=== PATIENT | female | born 1980 | race Caucasian/White ===

== ENCOUNTER 2017-12-11 15:00 | Observation (INO) | payer OTHER ==
[~2017-12-11] VITALS: Ht 170.2 cm; Wt 79.8 kg
[2017-12-11 15:43] VITALS: BP 106/66
[2017-12-11 16:47] LABS: BASOPHILS % (AUTO) 0.4 % (0.0-2.0); EOSINOPHILS % (AUTO) 0.2 % (1.0-6.0); HEMATOCRIT 31.3 % (36-46); LYMPHOCYTES # (AUTO) 1.7 K/uL (1.0-4.8); LYMPHOCYTES % (AUTO) 16.7 % (22.0-44.0); MEAN CORPUSCULAR HEMOGLOBIN 32.1 pg (26.0-34.0); MEAN CORPUSCULAR HGB CONC 35.1 G/dL (31.0-37.0); MEAN CORPUSCULAR VOLUME 92 fL (80-100); MONOCYTES # (AUTO) 0.5 K/uL (0.1-1.0); MONOCYTES % (AUTO) 5.5 % (2.0-9.0); NEUTROPHILS # (AUTO) 7.7 K/uL (1.8-7.7); NEUTROPHILS % (AUTO) 77.2 % (40.0-70.0); PLATELET COUNT (AUTO)-OB 163 K/uL (150-450); RED BLOOD CELL COUNT(AUTO) 3.42 MIL/uL (4.00-5.20); RED CELL DISTRIBUTION WIDTH 13.2 % (11.5-14.5)
== END 2017-12-11 18:50 | disposition home or self-care (01) ==
LOC: 4S 15:00
PROVIDERS: ADMIT Obstetrics & Gynecology; ATTEND Obstetrics & Gynecology
DX: O26.852 Spotting complicating pregnancy, second trimester (principal); O09.522 Supervision of elderly multigravida, second trimester; Z3A.27 27 weeks gestation of pregnancy
CPT/HCPCS: 36415; 59025; 76805; 80307 ×8; 85025; 86850; 86900; 86901; G0378

== ENCOUNTER 2018-04-03 16:21 | Emergency (ER) | payer OTHER ==
[~2018-04-03] VITALS: Ht 167.6 cm; Wt 77.3 kg
[2018-04-03 17:58] VITALS: BP 113/53
== END 2018-04-03 18:01 | disposition home or self-care (01) ==
LOC: EMS 16:26
DX: K64.4 Residual hemorrhoidal skin tags (principal); K62.89 Other specified diseases of anus and rectum; Z87.891 Personal history of nicotine dependence
CPT/HCPCS: 99282

== ENCOUNTER 2018-08-30 16:30 | Emergency (ER) | payer OTHER ==
[~2018-08-30] VITALS: Ht 165.1 cm; Wt 77.0 kg
[2018-08-30 18:19] LABS: BASOPHILS % (AUTO) 0.3 % (0.0-2.0); EOSINOPHILS % (AUTO) 0.5 % (1.0-6.0); HEMOGLOBIN 13.1 g/dL (12.0-16.0); LYMPHOCYTES # (AUTO) 1.5 K/uL (1.0-4.8); LYMPHOCYTES % (AUTO) 16.8 % (22.0-44.0); MEAN CORPUSCULAR HEMOGLOBIN 30.9 pg (26.0-34.0); MEAN CORPUSCULAR HGB CONC 34.4 G/dL (31.0-37.0); MEAN CORPUSCULAR VOLUME 90 fL (80-100); MONOCYTES % (AUTO) 10.9 % (2.0-9.0); NEUTROPHILS # (AUTO) 6.5 K/uL (1.8-7.7); NEUTROPHILS % (AUTO) 71.5 % (40.0-70.0); PLATELET COUNT (AUTO) 183 K/uL (150-450); RED BLOOD CELL COUNT(AUTO) 4.23 MIL/uL (4.00-5.20); RED CELL DISTRIBUTION WIDTH 13.1 % (11.5-14.5)
[2018-08-30 18:41] LABS: ANION GAP 8 mmol/L (8-16); CALCIUM, TOTAL 8.6 mg/dL (8.8-10.5); CARBON DIOXIDE 29 mmol/L (22-29); CHLORIDE 99 mmol/L (98-107); CREATININE 0.72 mg/dL (0.60-1.30); GLOMERULAR FILTR. RATE CALC > 60 mL/min (>60); GLUCOSE,RANDOM 103 mg/dL (70-110); POTASSIUM 3.9 mmol/L (3.5-5.1); SODIUM SERUM 136 mmol/L (136-145); UREA NITROGEN, BLOOD 14 mg/dL (7-18)
[2018-08-30 18:47] LABS: ALANINE AMINOTRANSFERASE 59 U/L (12-78); ALBUMIN 3.5 g/dL (3.4-5.0); ALKALINE PHOSPHATASE 143 U/L (46-116); ASPARTATE AMINOTRANSFERASE 39 U/L (15-37); BILIRUBIN,TOTAL 0.4 mg/dL (0.1-1.0); HCG,QUANTITATIVE < 1 mIU/mL (0-6); LIPASE 154 U/L (73-393); TOTAL PROTEIN, SERUM 8.2 g/dL (6.4-8.2)
[2018-08-30 19:30] VITALS: BP 130/57
[2018-08-30 19:45] LABS: APPEARANCE,URINE CLEAR (CLEAR); BILIRUBIN,URINE NEGATIVE (NEGATIVE); GLUCOSE, URINE (UA) NEGATIVE (NEGATIVE); KETONES,URINE NEGATIVE (NEGATIVE); LEUKOCYTE ESTERASE ,URINE TRACE (NEGATIVE); NITRATE,URINE NEGATIVE (NEGATIVE); OCCULT BLOOD,URINE NEGATIVE (NEGATIVE); PH,URINE 6.5 (5.0-8.0); PROTEIN,URINE NEGATIVE (NEGATIVE); UROBILINOGEN,URINE 0.2 mg/dL (<=1.0)
[2018-08-30] MEDS ORDERED: MAG HYDROX/AL HYDROX/SIMETH ES 30 ML SUSPENSION UDCUP PO ONE (20:00)
[2018-08-30] MEDS ORDERED: ACETAMINOPHEN 500 MG TABLET PO ONE (20:00)
[2018-08-30] MEDS ORDERED: ONDANSETRON HCL 4 MG TABLET PO ONE (20:00)
[2018-08-30 20:26] LABS: BACTERIA,URINE Rare /HPF (None Seen); RBC,URINE None Seen /HPF (0-2); SQUAMOUS EPITHELIAL CELL,UR Few /LPF (None Seen)
== END 2018-08-30 20:17 | disposition home or self-care (01) ==
LOC: EMS 16:30
DX: K29.70 Gastritis, unspecified, without bleeding (principal); Z87.891 Personal history of nicotine dependence
CPT/HCPCS: 36415; 76700; 80053; 81001; 83690; 84702; 85025; 99285; Q0162

== ENCOUNTER 2019-11-03 14:21 | Emergency (ER) | payer OTHER ==
[~2019-11-03] VITALS: Ht 167.6 cm; Wt 68.2 kg
[2019-11-03 15:06] VITALS: BP 122/69
[2019-11-03] MEDS ORDERED: IBUPROFEN 600 MG TABLET PO ONE (15:15)
== END 2019-11-03 17:45 | disposition home or self-care (01) ==
LOC: EMS 14:22
DX: S00.83XA Contusion of other part of head, initial encounter (principal); Z87.891 Personal history of nicotine dependence; X58.XXXA Exposure to other specified factors, initial encounter; Y93.89 Activity, other specified; Y92.89 Other specified places as the place of occurrence of the external cause; Y99.8 Other external cause status
CPT/HCPCS: 70100

== ENCOUNTER 2021-02-21 20:54 | Emergency (ER) | payer OTHER ==
[~2021-02-21] VITALS: Ht 167.6 cm; Wt 81.8 kg
[2021-02-21] MEDS ORDERED: ONDANSETRON HCL 4 MG/2 ML VIAL IVP ONE (23:00)
[2021-02-21] MEDS ORDERED: FAMOTIDINE 10 MG/ML 2 ML VIAL IVP ONE (23:00)
[2021-02-21] MEDS ORDERED: MAG HYDROX/AL HYDROX/SIMETH 30 ML SUSP UDCUP PO ONE ×2 (23:00→23:15)
[2021-02-21] MEDS ORDERED: FAMOTIDINE 20 MG TABLET PO ONE (23:15)
[2021-02-21 23:30] VITALS: BP 121/75
== END 2021-02-21 23:56 | disposition home or self-care (01) ==
LOC: EMS 20:56
DX: K29.70 Gastritis, unspecified, without bleeding (principal); Z87.891 Personal history of nicotine dependence; Z20.822 Contact with and (suspected) exposure to COVID-19
CPT/HCPCS: 99283; U0003

== ENCOUNTER 2022-04-25 21:47 | Emergency (ER) | payer OTHER ==
[~2022-04-25] VITALS: Ht 167.6 cm; Wt 79.5 kg
[2022-04-25 22:15] VITALS: BP 119/68
[2022-04-25] MEDS ORDERED: KETOROLAC TROMETHAMINE 30 MG/ML VIAL IM ONE (22:30)
[2022-04-25] MEDS ORDERED: ACETAMINOPHEN 500 MG TABLET PO ONE (22:30)
== END 2022-04-25 22:56 | disposition home or self-care (01) ==
LOC: EMS 21:47
DX: R51.9 Headache, unspecified (principal); K64.8 Other hemorrhoids
CPT/HCPCS: 99282; J1885

== ENCOUNTER 2022-04-28 19:13 | Emergency (ER) | payer OTHER ==
[~2022-04-28] VITALS: Ht 167.6 cm; Wt 80.9 kg
[2022-04-28 19:40] LABS: COVID AG,FIA SOURCE NASOPHARYNGEAL
[2022-04-28 20:01] LABS: INFLUENZA TYPE A NEGATIVE FOR TYPE A (NEGATIVE); INFLUENZA TYPE B NEGATIVE FOR TYPE B (NEGATIVE)
[2022-04-28 21:28] VITALS: BP 149/71
== END 2022-04-28 21:31 | disposition home or self-care (01) ==
LOC: EMS 19:16
DX: U07.1 COVID-19 (principal); B34.9 Viral infection, unspecified; Z87.19 Personal history of other diseases of the digestive system
CPT/HCPCS: 99283; 87426; 87804; U0003; C9803

== ENCOUNTER 2022-07-05 10:10 | Emergency (ER) | payer OTHER ==
[~2022-07-05] VITALS: Ht 167.6 cm; Wt 79.5 kg
[2022-07-05 10:28] VITALS: BP 118/72
[2022-07-05] MEDS ORDERED: IBUP-2070 PO (10:30)
[2022-07-05] MEDS ORDERED: IBUPROFEN 600 MG TABLET PO ONE (10:30)
== END 2022-07-05 10:41 | disposition home or self-care (01) ==
LOC: EMS 10:10
DX: M77.11 Lateral epicondylitis, right elbow (principal); Z87.891 Personal history of nicotine dependence; X50.3XXA Overexertion from repetitive movements, initial encounter; Y93.89 Activity, other specified; Y92.89 Other specified places as the place of occurrence of the external cause; Y99.0 Civilian activity done for income or pay
CPT/HCPCS: 99282; Z7502; Z7610

== ENCOUNTER 2022-07-21 14:46 | Emergency (ER) | payer OTHER ==
[~2022-07-21] VITALS: Ht 167.6 cm; Wt 81.0 kg
[~2022-07-21 14:46] MED LIST: IBUP-2070 PO
[2022-07-21 17:00] VITALS: BP 103/58
== END 2022-07-21 18:00 | disposition left against medical advice (07) ==
LOC: EMS 14:50
DX: Z53.21 Procedure and treatment not carried out due to patient leaving prior to being seen by health care provider (principal)

== ENCOUNTER 2022-07-23 12:18 | Emergency (ER) | payer OTHER ==
[~2022-07-23] VITALS: Ht 165.1 cm; Wt 85.5 kg
[2022-07-23] MEDS ORDERED: SODIUM CHLORIDE 0.9% 1,000 ML IV ONE (13:00)
[2022-07-23 13:07] LABS: BASOPHILS % (AUTO) 0.6 % (0.0-2.0); EOSINOPHILS % (AUTO) 0.3 % (1.0-6.0); HEMATOCRIT 40.6 % (36-46); HEMOGLOBIN 13.6 g/dL (12.0-16.0); LYMPHOCYTES # (AUTO) 1.8 K/uL (1.0-4.8); LYMPHOCYTES % (AUTO) 26.8 % (22.0-44.0); MEAN CORPUSCULAR HEMOGLOBIN 30.8 pg (26.0-34.0); MEAN CORPUSCULAR HGB CONC 33.5 G/dL (31.0-37.0); MEAN CORPUSCULAR VOLUME 92 fL (80-100); MONOCYTES # (AUTO) 0.4 K/uL (0.1-1.0); MONOCYTES % (AUTO) 6.6 % (2.0-9.0); NEUTROPHILS # (AUTO) 4.5 K/uL (1.8-7.7); NEUTROPHILS % (AUTO) 65.7 % (40.0-70.0); PLATELET COUNT (AUTO) 187 K/uL (150-450); RED BLOOD CELL COUNT(AUTO) 4.41 MIL/uL (4.00-5.20); RED CELL DISTRIBUTION WIDTH 13.2 % (11.5-14.5)
[2022-07-23 13:16] LABS: ANION GAP 2 mmol/L (8-16); CALCIUM, TOTAL 9.5 mg/dL (8.8-10.5); CARBON DIOXIDE 32 mmol/L (22-29); CHLORIDE 101 mmol/L (98-107); CREATININE 0.66 mg/dL (0.60-1.30); GLOMERULAR FILTR. RATE CALC > 60 mL/min (>60); GLUCOSE,RANDOM 92 mg/dL (70-110); POTASSIUM 4.1 mmol/L (3.5-5.1); SODIUM SERUM 135 mmol/L (136-145); UREA NITROGEN, BLOOD 10 mg/dL (7-18)
[2022-07-23 13:22] LABS: ALANINE AMINOTRANSFERASE 29 U/L (12-78); ALKALINE PHOSPHATASE 121 U/L (46-116); ASPARTATE AMINOTRANSFERASE 18 U/L (15-37); BILIRUBIN,TOTAL 0.6 mg/dL (0.1-1.0); TOTAL PROTEIN, SERUM 8.1 g/dL (6.4-8.2)
[2022-07-23 14:10] VITALS: BP 132/68
[2022-07-23 15:09] LABS: APPEARANCE,URINE HAZY (CLEAR); BILIRUBIN,URINE NEGATIVE (NEGATIVE); GLUCOSE, URINE (UA) NEGATIVE (NEGATIVE); KETONES,URINE NEGATIVE (NEGATIVE); LEUKOCYTE ESTERASE ,URINE LARGE (NEGATIVE); NITRATE,URINE NEGATIVE (NEGATIVE); OCCULT BLOOD,URINE NEGATIVE (NEGATIVE); PH,URINE 7.5 (5.0-8.0); PROTEIN,URINE TRACE mg/dL (NEGATIVE); SPECIFIC GRAVITIY, URINE 1.015 (1.003-1.030); UROBILINOGEN,URINE <=1.0 mg/dL (<=1.0)
[2022-07-23 15:21] LABS: SQUAMOUS EPITHELIAL CELL,UR Many /LPF (None Seen)
[2022-07-23 15:22] LABS: BACTERIA,URINE Many /HPF (None Seen)
[2022-07-23 15:23] LABS: RBC,URINE None Seen /HPF (0-2)
== END 2022-07-23 14:49 | disposition home or self-care (01) ==
LOC: EMS 12:18
DX: R42 Dizziness and giddiness (principal); F10.20 Alcohol dependence, uncomplicated
CPT/HCPCS: 99284; 96360; 80053; 81001; 84484; 84703; 85025; 36415; 87086; 93005; J7030

== ENCOUNTER 2023-04-25 14:33 | Emergency (ER) | payer OTHER ==
[~2023-04-25] VITALS: Ht 167.6 cm; Wt 80.5 kg
[2023-04-25 14:42] VITALS: TEMP 99.4
[2023-04-25] MEDS ORDERED: AZIT250T9 PO (15:23)
[2023-04-25] MEDS ORDERED: BENZ-227 PO (15:23)
[2023-04-25 15:28] VITALS: BP 122/72; PULSE 70; RESP 16
== END 2023-04-25 16:06 | disposition home or self-care (01) ==
LOC: EMS 14:34
DX: J18.0 Bronchopneumonia, unspecified organism (principal); Z87.891 Personal history of nicotine dependence
CPT/HCPCS: 71045; 99283

== ENCOUNTER 2023-05-26 21:20 | Emergency (ER) | payer OTHER ==
[~2023-05-26] VITALS: Ht 167.6 cm; Wt 81.0 kg
[~2023-05-26 21:20] MED LIST changes: +BENZ-227 PO; -IBUP-2070 PO
[2023-05-26 21:37] VITALS: TEMP 98.3
[2023-05-26] MEDS ORDERED: ACETAMINOPHEN 500 MG TABLET PO ONE (22:30)
[2023-05-26 23:00] LABS: COVID AG,FIA SOURCE NASOPHARYNGEAL
[2023-05-26 23:31] LABS: RAPID GROUP A STREP NEGATIVE (NEGATIVE)
[2023-05-26] MEDS ORDERED: ACET-3385 PO (23:40)
[2023-05-26 23:43] LABS: INFLUENZA TYPE A NEGATIVE FOR TYPE A (NEGATIVE); INFLUENZA TYPE B NEGATIVE FOR TYPE B (NEGATIVE)
[2023-05-27 00:27] VITALS: BP 106/75; PULSE 78; RESP 18
== END 2023-05-27 00:30 | disposition home or self-care (01) ==
LOC: EMS 21:21
DX: B34.9 Viral infection, unspecified (principal); Z20.822 Contact with and (suspected) exposure to COVID-19; Z79.899 Other long term (current) drug therapy
CPT/HCPCS: 87430; 87804; 99283

== ENCOUNTER 2023-06-03 17:07 | Emergency (ER) | payer OTHER ==
[~2023-06-03] VITALS: Ht 167.6 cm; Wt 86.4 kg
[~2023-06-03 17:07] MED LIST changes: +ACET-3385 PO
[2023-06-03 17:11] VITALS: TEMP 98.2
[2023-06-03] MEDS ORDERED: IBUPROFEN 600 MG TABLET PO ONE (17:30)
[2023-06-03 18:04] VITALS: BP 118/74; PULSE 72; RESP 16
== END 2023-06-03 19:16 | disposition home or self-care (01) ==
LOC: EMS 17:08
DX: M77.8 Other enthesopathies, not elsewhere classified (principal)
CPT/HCPCS: 99283

== ENCOUNTER 2023-06-30 12:09 | Emergency (ER) | payer OTHER ==
[~2023-06-30] VITALS: Ht 165.1 cm; Wt 81.8 kg
[2023-06-30 12:13] VITALS: TEMP 98.5
[2023-06-30 13:15] VITALS: BP 115/62; PULSE 64; RESP 18
== END 2023-06-30 13:22 | disposition home or self-care (01) ==
LOC: EMS 12:34
DX: K64.9 Unspecified hemorrhoids (principal)
CPT/HCPCS: 99281; Z7502

== ENCOUNTER 2023-07-02 16:02 | Emergency (ER) | payer OTHER ==
[~2023-07-02] VITALS: Ht 165.1 cm; Wt 77.3 kg
[2023-07-02 16:16] VITALS: TEMP 98.9
[2023-07-02 18:32] LABS: BASOPHILS % (AUTO) 1.2 % (0.0-2.0); EOSINOPHILS % (AUTO) 0.5 % (1.0-6.0); HEMATOCRIT 38.8 % (36-46); HEMOGLOBIN 12.4 g/dL (12.0-16.0); LYMPHOCYTES # (AUTO) 2.7 K/uL (1.0-4.8); LYMPHOCYTES % (AUTO) 31.5 % (22.0-44.0); MEAN CORPUSCULAR HEMOGLOBIN 29.7 pg (26.0-34.0); MEAN CORPUSCULAR VOLUME 93 fL (80-100); MONOCYTES # (AUTO) 0.6 K/uL (0.1-1.0); MONOCYTES % (AUTO) 6.8 % (2.0-9.0); NEUTROPHILS # (AUTO) 5.2 K/uL (1.8-7.7); PLATELET COUNT (AUTO) 167 K/uL (150-450); RED BLOOD CELL COUNT(AUTO) 4.18 MIL/uL (4.00-5.20); RED CELL DISTRIBUTION WIDTH 13.2 % (11.5-14.5); WHITE BLOOD COUNT (AUTO) 8.6 K/uL (4.5-11.0)
[2023-07-02 18:49] LABS: APPEARANCE,URINE CLEAR (CLEAR); BILIRUBIN,URINE NEGATIVE (NEGATIVE); COLOR,URINE LIGHT YELLOW (YELLOW); GLUCOSE, URINE (UA) NEGATIVE (NEGATIVE); KETONES,URINE NEGATIVE (NEGATIVE); LEUKOCYTE ESTERASE ,URINE NEGATIVE (NEGATIVE); NITRATE,URINE NEGATIVE (NEGATIVE); OCCULT BLOOD,URINE NEGATIVE (NEGATIVE); PH,URINE 7.5 (5.0-8.0); PROTEIN,URINE NEGATIVE (NEGATIVE); SPECIFIC GRAVITIY, URINE 1.012 (1.003-1.030); UROBILINOGEN,URINE <=1.0 mg/dL (<=1.0)
[2023-07-02 19:24] LABS: ANION GAP 10 mmol/L (8-16); CALCIUM, TOTAL 9.3 mg/dL (8.8-10.5); CARBON DIOXIDE 25 mmol/L (22-29); CHLORIDE 100 mmol/L (98-107); CREATININE 0.56 mg/dL (0.60-1.30); GLOMERULAR FILTR. RATE CALC > 60 mL/min (>60); GLUCOSE,RANDOM 94 mg/dL (70-110); POTASSIUM 3.9 mmol/L (3.5-5.1); SODIUM SERUM 135 mmol/L (136-145); UREA NITROGEN, BLOOD 16 mg/dL (7-18)
[2023-07-02 20:04] LABS: ALBUMIN 3.8 g/dL (3.4-5.0); ALKALINE PHOSPHATASE 112 U/L (46-116); ASPARTATE AMINOTRANSFERASE 21 U/L (15-37); BILIRUBIN,TOTAL 0.4 mg/dL (0.1-1.0); HCG,QUANTITATIVE < 1 mIU/mL (0-6); LIPASE 38 U/L (16-77); TOTAL PROTEIN, SERUM 7.8 g/dL (6.4-8.2)
[2023-07-02 20:05] VITALS: BP 104/65; PULSE 74; RESP 16
[2023-07-02 20:15] LABS: ALANINE AMINOTRANSFERASE 15 U/L (12-78)
== END 2023-07-02 20:18 | disposition home or self-care (01) ==
LOC: EMS 16:03
DX: F41.9 Anxiety disorder, unspecified (principal); R53.1 Weakness
CPT/HCPCS: 80053; 81003; 83690; 84702; 85025; 93005; 99284

== ENCOUNTER 2023-08-11 16:35 | Emergency (ER) | payer OTHER ==
[~2023-08-11] VITALS: Ht 162.6 cm; Wt 80.9 kg
[2023-08-11 16:48] VITALS: TEMP 98.5
[2023-08-11] MEDS ORDERED: KETOROLAC TROMETHAMINE 30 MG/ML VIAL IM ONE (19:30)
[2023-08-11] MEDS ORDERED: LIDOCAINE 5% TRANSDERMAL PATCH TD ONE (19:30)
[2023-08-11 20:00] VITALS: BP 139/57; PULSE 61; RESP 15
== END 2023-08-11 20:02 | disposition home or self-care (01) ==
LOC: EMS 16:35
DX: M54.50 Low back pain, unspecified (principal)
CPT/HCPCS: 99283; 72110; 96372; J1885

== ENCOUNTER 2023-09-21 18:59 | Emergency (ER) | payer OTHER ==
[~2023-09-21] VITALS: Ht 167.6 cm; Wt 80.9 kg
[2023-09-21 19:10] VITALS: BP 121/77; PULSE 93; RESP 16; TEMP 99.9
[2023-09-21 20:04] LABS: COVID AG,FIA SOURCE NASAL SWAB
[2023-09-21 20:29] LABS: RAPID GROUP A STREP NEGATIVE (NEGATIVE)
[2023-09-21 20:32] LABS: INFLUENZA TYPE A NEGATIVE FOR TYPE A (NEGATIVE); INFLUENZA TYPE B NEGATIVE FOR TYPE B (NEGATIVE); SARS-COV2 (COVID) ANTIGEN,FIA Negative (Negative)
[2023-09-21] MEDS ORDERED: ACETAMINOPHEN 500 MG TABLET PO ONE (20:45)
== END 2023-09-21 22:24 | disposition home or self-care (01) ==
LOC: EMS 19:00
DX: J02.8 Acute pharyngitis due to other specified organisms (principal); Z20.822 Contact with and (suspected) exposure to COVID-19
CPT/HCPCS: 87430; 87804; 99283

== ENCOUNTER 2023-10-18 11:38 | Emergency (ER) | payer OTHER ==
[~2023-10-18] VITALS: Ht 162.6 cm; Wt 92.0 kg
[2023-10-18 11:46] VITALS: BP 110/59; PULSE 79; RESP 16; TEMP 97.7
[2023-10-18 12:07] LABS: COVID AG,FIA SOURCE NASAL SWAB
[2023-10-18 12:27] LABS: SARS-COV2 (COVID) ANTIGEN,FIA Negative (Negative)
[2023-10-18 12:29] LABS: INFLUENZA TYPE A NEGATIVE FOR TYPE A (NEGATIVE); INFLUENZA TYPE B NEGATIVE FOR TYPE B (NEGATIVE)
[2023-10-18] MEDS ORDERED: KETOROLAC TROMETHAMINE 30 MG/ML VIAL IM ONE (15:00)
[2023-10-18 16:03] LABS: BASOPHILS % (AUTO) 0.3 % (0.0-2.0); EOSINOPHILS % (AUTO) 0.5 % (1.0-6.0); HEMATOCRIT 38.9 % (36-46); HEMOGLOBIN 13.4 g/dL (12.0-16.0); LYMPHOCYTES # (AUTO) 1.9 K/uL (1.0-4.8); LYMPHOCYTES % (AUTO) 21.9 % (22.0-44.0); MEAN CORPUSCULAR HGB CONC 34.4 G/dL (31.0-37.0); MEAN CORPUSCULAR VOLUME 93 fL (80-100); MONOCYTES # (AUTO) 0.7 K/uL (0.1-1.0); MONOCYTES % (AUTO) 8.2 % (2.0-9.0); NEUTROPHILS # (AUTO) 6.1 K/uL (1.8-7.7); NEUTROPHILS % (AUTO) 69.1 % (40.0-70.0); PLATELET COUNT (AUTO) 197 K/uL (150-450); RED BLOOD CELL COUNT(AUTO) 4.19 MIL/uL (4.00-5.20); RED CELL DISTRIBUTION WIDTH 13.3 % (11.5-14.5); WHITE BLOOD COUNT (AUTO) 8.9 K/uL (4.5-11.0)
[2023-10-18 16:07] LABS: ANION GAP 8 mmol/L (8-16); CARBON DIOXIDE 27 mmol/L (22-29); CHLORIDE 105 mmol/L (98-107); CREATININE 0.69 mg/dL (0.60-1.30); GLOMERULAR FILTR. RATE CALC > 60 mL/min (>60); GLUCOSE,RANDOM 86 mg/dL (70-110); POTASSIUM 3.5 mmol/L (3.5-5.1); SODIUM SERUM 140 mmol/L (136-145); UREA NITROGEN, BLOOD 14 mg/dL (7-18)
[2023-10-18 16:12] LABS: ALANINE AMINOTRANSFERASE 27 U/L (12-78); ALBUMIN 3.9 g/dL (3.4-5.0); ALKALINE PHOSPHATASE 118 U/L (46-116); ASPARTATE AMINOTRANSFERASE 19 U/L (15-37); BILIRUBIN,TOTAL 0.4 mg/dL (0.1-1.0); TOTAL PROTEIN, SERUM 8.4 g/dL (6.4-8.2)
[2023-10-18] MEDS ORDERED: CYCL-448 PO (16:59)
== END 2023-10-18 17:10 | disposition home or self-care (01) ==
LOC: EMS 11:39
DX: M54.6 Pain in thoracic spine (principal); Z20.822 Contact with and (suspected) exposure to COVID-19
CPT/HCPCS: 99285; 71045; 87426; 80053; 84703; 85025; 87804; 36415; 93005; 96372; J1885

== ENCOUNTER 2023-11-28 14:08 | Emergency (ER) | payer OTHER ==
[~2023-11-28] VITALS: Ht 170.2 cm; Wt 84.1 kg
[~2023-11-28 14:08] MED LIST changes: -ACET-3385 PO; -BENZ-227 PO; +CYCL-448 PO
[2023-11-28 14:11] VITALS: BP 122/83; PULSE 84; RESP 16; TEMP 97.9
== END 2023-11-28 18:20 | disposition left against medical advice (07) ==
LOC: EMS 14:08
DX: R07.89 Other chest pain (principal)
CPT/HCPCS: 99281; Z7502

== ENCOUNTER 2023-11-30 10:41 | Emergency (ER) | payer OTHER ==
[~2023-11-30] VITALS: Ht 167.6 cm; Wt 81.8 kg
[2023-11-30 10:56] VITALS: TEMP 98.4
[2023-11-30 11:20] LABS: BASOPHILS % (AUTO) 0.4 % (0.0-2.0); EOSINOPHILS % (AUTO) 0.5 % (1.0-6.0); HEMOGLOBIN 13.3 g/dL (12.0-16.0); LYMPHOCYTES # (AUTO) 1.8 K/uL (1.0-4.8); LYMPHOCYTES % (AUTO) 21.4 % (22.0-44.0); MEAN CORPUSCULAR HEMOGLOBIN 30.8 pg (26.0-34.0); MEAN CORPUSCULAR HGB CONC 33.2 G/dL (31.0-37.0); MEAN CORPUSCULAR VOLUME 93 fL (80-100); MONOCYTES # (AUTO) 0.5 K/uL (0.1-1.0); MONOCYTES % (AUTO) 6.4 % (2.0-9.0); NEUTROPHILS # (AUTO) 5.9 K/uL (1.8-7.7); NEUTROPHILS % (AUTO) 71.3 % (40.0-70.0); PLATELET COUNT (AUTO) 203 K/uL (150-450); RED CELL DISTRIBUTION WIDTH 13.4 % (11.5-14.5); WHITE BLOOD COUNT (AUTO) 8.3 K/uL (4.5-11.0)
[2023-11-30 11:41] LABS: ANION GAP 8 mmol/L (8-16); CALCIUM, TOTAL 9.1 mg/dL (8.8-10.5); CARBON DIOXIDE 28 mmol/L (22-29); CHLORIDE 102 mmol/L (98-107); CREATININE 0.64 mg/dL (0.60-1.30); GLOMERULAR FILTR. RATE CALC > 60 mL/min (>60); GLUCOSE,RANDOM 95 mg/dL (70-110); POTASSIUM 3.8 mmol/L (3.5-5.1); SODIUM SERUM 138 mmol/L (136-145); UREA NITROGEN, BLOOD 14 mg/dL (7-18)
[2023-11-30 11:47] LABS: ALANINE AMINOTRANSFERASE 29 U/L (12-78); ALBUMIN 3.8 g/dL (3.4-5.0); ALKALINE PHOSPHATASE 123 U/L (46-116); ASPARTATE AMINOTRANSFERASE 19 U/L (15-37); BILIRUBIN,TOTAL 0.5 mg/dL (0.1-1.0); LIPASE 36 U/L (16-77); TOTAL PROTEIN, SERUM 7.8 g/dL (6.4-8.2)
[2023-11-30] MEDS: LIDOCAINE 5% TRANSDERMAL PATCH TD ONE (12:39)
[2023-11-30] MEDS: KETOROLAC TROMETHAMINE 30 MG/ML VIAL IM ONE (12:39)
[2023-11-30] MEDS ORDERED: ACET-3385 PO (13:57)
[2023-11-30] MEDS ORDERED: IBUP-1492 PO (13:57)
[2023-11-30 14:00] LABS: APPEARANCE,URINE HAZY (CLEAR); BILIRUBIN,URINE NEGATIVE (NEGATIVE); COLOR,URINE COLORLESS (YELLOW); GLUCOSE, URINE (UA) NEGATIVE (NEGATIVE); KETONES,URINE NEGATIVE (NEGATIVE); LEUKOCYTE ESTERASE ,URINE NEGATIVE (NEGATIVE); NITRATE,URINE NEGATIVE (NEGATIVE); OCCULT BLOOD,URINE LARGE (NEGATIVE); PH,URINE 6.5 (5.0-8.0); PROTEIN,URINE NEGATIVE (NEGATIVE); SPECIFIC GRAVITIY, URINE 1.009 (1.003-1.030); UROBILINOGEN,URINE <=1.0 mg/dL (<=1.0)
[2023-11-30 14:23] LABS: BACTERIA,URINE None Seen /HPF (None Seen); RBC,URINE 26-50 /HPF (0-2); SQUAMOUS EPITHELIAL CELL,UR Few /LPF (None Seen); WBC,URINE None Seen /HPF (0-5)
[2023-11-30 14:40] VITALS: BP 124/76; PULSE 82; RESP 16
== END 2023-11-30 14:59 | disposition home or self-care (01) ==
LOC: EMS 11:06
DX: R10.9 Unspecified abdominal pain (principal)
CPT/HCPCS: 99283; 80053; 81001; 83690; 84703; 85025; 36415; 96372; J1885

== ENCOUNTER 2023-12-29 21:17 | Emergency (ER) | payer OTHER ==
[~2023-12-29] VITALS: Ht 167.6 cm; Wt 82.0 kg
[~2023-12-29 21:17] MED LIST changes: +ACET-3385 PO; -CYCL-448 PO; +DOXY-354 PO; +IBUP-1492 PO
[2023-12-29 21:42] VITALS: BP 116/72; PULSE 77; RESP 18; TEMP 96.9
== END 2023-12-29 23:06 | disposition still patient (30) ==
LOC: EMS 21:17
DX: M79.672 Pain in left foot (principal); Z53.21 Procedure and treatment not carried out due to patient leaving prior to being seen by health care provider
CPT/HCPCS: 99281; Z7502

== ENCOUNTER 2024-03-27 10:36 | Emergency (ER) | payer OTHER ==
[~2024-03-27] VITALS: Ht 162.6 cm; Wt 75.0 kg
[~2024-03-27 10:36] MED LIST changes: +FLUT16SP NASAL
[2024-03-27 10:59] VITALS: BP 119/84; PULSE 66; RESP 18; TEMP 97.9
[2024-03-27 11:08] LABS: EOSINOPHILS % (AUTO) 0.4 % (1.0-6.0); HEMOGLOBIN 13.5 g/dL (12.0-16.0); LYMPHOCYTES # (AUTO) 2.1 K/uL (1.0-4.8); LYMPHOCYTES % (AUTO) 28.5 % (22.0-44.0); MEAN CORPUSCULAR HEMOGLOBIN 31.1 pg (26.0-34.0); MEAN CORPUSCULAR HGB CONC 33.7 G/dL (31.0-37.0); MEAN CORPUSCULAR VOLUME 92 fL (80-100); MONOCYTES # (AUTO) 0.4 K/uL (0.1-1.0); MONOCYTES % (AUTO) 5.7 % (2.0-9.0); NEUTROPHILS # (AUTO) 4.7 K/uL (1.8-7.7); NEUTROPHILS % (AUTO) 64.4 % (40.0-70.0); PLATELET COUNT (AUTO) 188 K/uL (150-450); RED BLOOD CELL COUNT(AUTO) 4.34 MIL/uL (4.00-5.20); RED CELL DISTRIBUTION WIDTH 12.8 % (11.5-14.5); WHITE BLOOD COUNT (AUTO) 7.2 K/uL (4.5-11.0)
[2024-03-27 11:10] LABS: APPEARANCE,URINE CLEAR (CLEAR); BILIRUBIN,URINE NEGATIVE (NEGATIVE); COLOR,URINE COLORLESS (YELLOW); GLUCOSE, URINE (UA) NEGATIVE (NEGATIVE); KETONES,URINE NEGATIVE (NEGATIVE); LEUKOCYTE ESTERASE ,URINE MODERATE (NEGATIVE); NITRATE,URINE NEGATIVE (NEGATIVE); OCCULT BLOOD,URINE TRACE (NEGATIVE); PH,URINE 6.5 (5.0-8.0); PROTEIN,URINE NEGATIVE (NEGATIVE); SPECIFIC GRAVITIY, URINE 1.006 (1.003-1.030); UROBILINOGEN,URINE <=1.0 mg/dL (<=1.0)
[2024-03-27 11:23] LABS: BACTERIA,URINE Moderate /HPF (None Seen); SQUAMOUS EPITHELIAL CELL,UR Moderate /LPF (None Seen)
[2024-03-27 11:31] LABS: ANION GAP 6 mmol/L (8-16); CALCIUM, TOTAL 9.1 mg/dL (8.8-10.5); CARBON DIOXIDE 31 mmol/L (22-29); CHLORIDE 101 mmol/L (98-107); CREATININE 0.63 mg/dL (0.60-1.30); GLOMERULAR FILTR. RATE CALC > 60 mL/min (>60); GLUCOSE,RANDOM 97 mg/dL (70-110); POTASSIUM 3.5 mmol/L (3.5-5.1); SODIUM SERUM 138 mmol/L (136-145); UREA NITROGEN, BLOOD 14 mg/dL (7-18)
[2024-03-27 11:35] LABS: HCG,QUANTITATIVE 1 mIU/mL (0-6); LIPASE 36 U/L (16-77)
[2024-03-27] MEDS ORDERED: CEPH-558 PO (14:23)
== END 2024-03-27 14:33 | disposition home or self-care (01) ==
LOC: EMS 10:36
DX: N39.0 Urinary tract infection, site not specified (principal); R07.9 Chest pain, unspecified
CPT/HCPCS: 80048; 81001; 83690; 84702; 85025; 87086; 87186; 93005; 99284

== ENCOUNTER 2024-04-09 13:26 | Emergency (ER) | payer OTHER ==
[~2024-04-09] VITALS: Ht 167.6 cm; Wt 81.8 kg
[~2024-04-09 13:26] MED LIST changes: -ACET-3385 PO; +CEPH-558 PO; -DOXY-354 PO; -FLUT16SP NASAL; -IBUP-1492 PO
[2024-04-09 13:42] VITALS: BP 108/64; PULSE 80; RESP 16; TEMP 97.9
[2024-04-09] MEDS ORDERED: OMEP20 PO (15:21)
[2024-04-09] MEDS ORDERED: POLY119P3 PO (15:21)
[2024-04-09] MEDS ORDERED: HYDR-4268 TP (15:21)
== END 2024-04-09 15:50 | disposition home or self-care (01) ==
LOC: EMS 13:26
DX: K64.9 Unspecified hemorrhoids (principal)
CPT/HCPCS: 99282; Z7502

== ENCOUNTER 2024-05-01 11:28 | Emergency (ER) | payer OTHER ==
[~2024-05-01] VITALS: Ht 165.1 cm; Wt 81.8 kg
[~2024-05-01 11:28] MED LIST changes: +HYDR-4268 TP; +OMEP20 PO; +POLY119P3 PO
[2024-05-01 13:21] LABS: COVID AG,FIA SOURCE NASAL SWAB
[2024-05-01 13:54] LABS: INFLUENZA TYPE A NEGATIVE FOR TYPE A (NEGATIVE); INFLUENZA TYPE B NEGATIVE FOR TYPE B (NEGATIVE); SARS-COV2 (COVID) ANTIGEN,FIA Negative (Negative)
[2024-05-01 14:30] VITALS: BP 112/73; PULSE 72; RESP 18; TEMP 98.6
== END 2024-05-01 14:44 | disposition home or self-care (01) ==
LOC: EMS 11:28
DX: R05.9 Cough, unspecified (principal); R09.81 Nasal congestion; J02.9 Acute pharyngitis, unspecified; Z20.822 Contact with and (suspected) exposure to COVID-19
CPT/HCPCS: 87804; 99283

== ENCOUNTER 2024-08-20 13:15 | Emergency (ER) | payer OTHER ==
[~2024-08-20] VITALS: Ht 167.6 cm; Wt 75.5 kg
[2024-08-20] MEDS: KETOROLAC TROMETHAMINE 30 MG/ML VIAL IM ONE (16:04)
[2024-08-20] MEDS: LIDOCAINE 5% TRANSDERMAL PATCH TD ONE (16:04)
[2024-08-20 18:34] LABS: APPEARANCE,URINE CLEAR (CLEAR); BILIRUBIN,URINE NEGATIVE (NEGATIVE); COLOR,URINE LIGHT YELLOW (YELLOW); GLUCOSE, URINE (UA) NEGATIVE (NEGATIVE); KETONES,URINE NEGATIVE (NEGATIVE); LEUKOCYTE ESTERASE ,URINE SMALL (NEGATIVE); NITRATE,URINE NEGATIVE (NEGATIVE); OCCULT BLOOD,URINE NEGATIVE (NEGATIVE); PROTEIN,URINE NEGATIVE (NEGATIVE); SPECIFIC GRAVITIY, URINE 1.016 (1.003-1.030); UROBILINOGEN,URINE <=1.0 mg/dL (<=1.0)
[2024-08-20 18:41] LABS: BACTERIA,URINE Rare /HPF (None Seen); RBC,URINE 0-2 /HPF (0-2); SQUAMOUS EPITHELIAL CELL,UR Few /LPF (None Seen)
[2024-08-20 18:56] VITALS: BP 120/77; PULSE 74; RESP 18; TEMP 98.2; O2SAT 99
[2024-08-20] MEDS ORDERED: IBUP-1492 PO (18:57)
[2024-08-20] MEDS ORDERED: CYCL-448 PO (18:57)
[2024-08-20] MEDS ORDERED: CEPH-558 PO (18:57)
[2024-08-20] MEDS: CEPHALEXIN MONOHYDRATE 500 MG CAPSULE PO ONE (19:12)
== END 2024-08-20 19:20 | disposition home or self-care (01) ==
LOC: EMS 13:15
DX: N39.0 Urinary tract infection, site not specified (principal); M54.50 Low back pain, unspecified; R19.7 Diarrhea, unspecified; Z87.19 Personal history of other diseases of the digestive system
CPT/HCPCS: 99283; 81001; 87086; 87147; 96372; J1885

== ENCOUNTER 2025-07-10 12:58 | Emergency (ER) | payer OTHER ==
[~2025-07-10] VITALS: Ht 167.6 cm; Wt 75.0 kg
[~2025-07-10 12:58] MED LIST changes: +CYCL-448 PO; -HYDR-4268 TP; +IBUP-1492 PO; -OMEP20 PO; -POLY119P3 PO
[2025-07-10 13:08] VITALS: TEMP 98.6
[2025-07-10 14:00] LABS: PLATELET COUNT (AUTO) 174 K/uL (150-450); RED BLOOD CELL COUNT(AUTO) 4.25 MIL/uL (4.00-5.20); RED CELL DISTRIBUTION WIDTH 13.6 % (11.5-14.5); WHITE BLOOD COUNT (AUTO) 7.5 K/uL (4.5-11.0)
[2025-07-10] MEDS: SODIUM CHLORIDE 0.9% 1,000 ML IV ONE (14:06)
[2025-07-10 14:10] LABS: CALCIUM, TOTAL 8.9 mg/dL (8.8-10.5); CREATININE 0.46 mg/dL (0.60-1.30); GLOMERULAR FILTR. RATE CALC > 60 mL/min (>60); GLUCOSE,RANDOM 101 mg/dL (70-110); SODIUM SERUM 137 mmol/L (136-145); UREA NITROGEN, BLOOD 17 mg/dL (7-18)
[2025-07-10 14:15] LABS: ASPARTATE AMINOTRANSFERASE 16 U/L (15-37); TOTAL PROTEIN, SERUM 7.1 g/dL (6.4-8.2)
[2025-07-10] MEDS: FAMOTIDINE 20 MG/2 ML VIAL IVP ONE (14:17)
[2025-07-10] MEDS: DIPHENOXYLATE/ATROP 2.5-0.025 MG TABLET PO ONE (14:18)
[2025-07-10] MEDS: ONDANSETRON HCL 4 MG/2 ML VIAL IVP ONE (14:18)
[2025-07-10] MEDS: MAG HYDROX/ALUMINUM HYD/SIMETH ES 30 ML SUSPENSION UDCUP PO ONE (14:18)
[2025-07-10 14:33] LABS: HCG,QUANTITATIVE < 1 mIU/mL (0-6)
[2025-07-10 14:55] LABS: APPEARANCE,URINE CLEAR (CLEAR); GLUCOSE, URINE (UA) NEGATIVE (NEGATIVE); LEUKOCYTE ESTERASE ,URINE SMALL (NEGATIVE); NITRATE,URINE NEGATIVE (NEGATIVE); OCCULT BLOOD,URINE NEGATIVE (NEGATIVE); SPECIFIC GRAVITIY, URINE 1.012 (1.003-1.030)
[2025-07-10 15:35] LABS: SQUAMOUS EPITHELIAL CELL,UR Few /LPF (None Seen)
[2025-07-10 15:41] VITALS: BP 120/73; PULSE 58; RESP 20; O2SAT 97
[2025-07-10] MEDS ORDERED: FAMO20 PO (15:48)
== END 2025-07-10 16:00 | disposition home or self-care (01) ==
LOC: EMS 12:59
DX: K21.9 Gastro-esophageal reflux disease without esophagitis (principal); R19.7 Diarrhea, unspecified; R10.13 Epigastric pain; N89.8 Other specified noninflammatory disorders of vagina; Z87.19 Personal history of other diseases of the digestive system
CPT/HCPCS: 99284; 96374; 96361; 96375; 80048; 80076; 81001; 83690; 84702; 85025; 36415; J3490; J2405; J7030

== ENCOUNTER 2025-07-31 09:08 | Emergency (ER) | payer OTHER ==
[~2025-07-31] VITALS: Ht 167.6 cm; Wt 70.9 kg
[~2025-07-31 09:08] MED LIST changes: -CEPH-558 PO; -CYCL-448 PO; +FAMO20 PO; -IBUP-1492 PO
[2025-07-31 09:09] VITALS: TEMP 97.5; O2SAT 98
[2025-07-31] MEDS: OxyCODONE HCL/ACETAMINOPHEN 5-325 MG TABLET PO ONE (11:08)
[2025-07-31] MEDS: LIDOCAINE 5% TRANSDERMAL PATCH TD ONE (11:09)
[2025-07-31 11:30] VITALS: BP 118/55; PULSE 78; RESP 16
[2025-07-31] MEDS ORDERED: LIDO-57 TP (12:28)
[2025-07-31] MEDS ORDERED: METH-659 PO (12:28)
[2025-07-31] MEDS ORDERED: IBUP-1492 PO (12:28)
== END 2025-07-31 12:45 | disposition home or self-care (01) ==
LOC: EMS 09:12
DX: M54.42 Lumbago with sciatica, left side (principal); Z87.19 Personal history of other diseases of the digestive system; Z79.899 Other long term (current) drug therapy
CPT/HCPCS: 99284; Z7502; Z7610

== ENCOUNTER 2025-09-05 09:29 | Emergency (ER) | payer OTHER ==
[~2025-09-05] VITALS: Ht 167.6 cm; Wt 70.5 kg
[~2025-09-05 09:29] MED LIST changes: +IBUP-1492 PO; +LIDO-57 TP; +METH-659 PO
[2025-09-05 09:49] VITALS: TEMP 97.5
[2025-09-05] MEDS: KETOROLAC TROMETHAMINE 30 MG/ML VIAL IM ONE (13:24)
[2025-09-05] MEDS ORDERED: IBUP-1492 PO (13:57)
[2025-09-05] MEDS ORDERED: LIDO-57 TP (13:57)
[2025-09-05 14:00] VITALS: BP 116/83; PULSE 88; RESP 16; O2SAT 100
[2025-09-06] MEDS ORDERED: MULT9LIQ7 PO (13:13)
[2025-09-06] MEDS ORDERED: FAMO20 PO (16:24)
== END 2025-09-05 14:17 | disposition home or self-care (01) ==
LOC: EMS 09:29
DX: S46.912A Strain of unspecified muscle, fascia and tendon at shoulder and upper arm level, left arm, initial encounter (principal); Z87.19 Personal history of other diseases of the digestive system; X50.0XXA Overexertion from strenuous movement or load, initial encounter; Y93.89 Activity, other specified; Y92.89 Other specified places as the place of occurrence of the external cause; Y99.0 Civilian activity done for income or pay
CPT/HCPCS: 99285; 73030; 96372; J1885

== ENCOUNTER 2025-09-06 13:06 | Emergency (ER) | payer OTHER ==
[~2025-09-06] VITALS: Ht 167.6 cm; Wt 70.5 kg
[2025-09-06 13:12] VITALS: TEMP 98.6
[2025-09-06] MEDS ORDERED: MULT9LIQ7 PO (13:13)
[2025-09-06 13:54] LABS: RED BLOOD CELL COUNT(AUTO) 4.25 MIL/uL (4.00-5.20)
[2025-09-06 14:03] LABS: PLATELET COUNT (AUTO) 133 K/uL (150-450); RED CELL DISTRIBUTION WIDTH 13.4 % (11.5-14.5); WHITE BLOOD COUNT (AUTO) 5.4 K/uL (4.5-11.0)
[2025-09-06 14:04] LABS: CALCIUM, TOTAL 8.0 mg/dL (8.8-10.5); CREATININE 0.63 mg/dL (0.60-1.30); GLOMERULAR FILTR. RATE CALC > 60 mL/min (>60); GLUCOSE,RANDOM 118 mg/dL (70-110); SODIUM SERUM 135 mmol/L (136-145); UREA NITROGEN, BLOOD 13 mg/dL (7-18)
[2025-09-06 14:15] LABS: ASPARTATE AMINOTRANSFERASE 36 U/L (15-37); HCG,QUANTITATIVE < 1 mIU/mL (0-6); TOTAL PROTEIN, SERUM 7.0 g/dL (6.4-8.2)
[2025-09-06 14:50] LABS: APPEARANCE,URINE CLEAR (CLEAR); GLUCOSE, URINE (UA) NEGATIVE (NEGATIVE); LEUKOCYTE ESTERASE ,URINE NEGATIVE (NEGATIVE); NITRATE,URINE NEGATIVE (NEGATIVE); OCCULT BLOOD,URINE NEGATIVE (NEGATIVE); SPECIFIC GRAVITIY, URINE 1.010 (1.003-1.030)
[2025-09-06] MEDS: FAMOTIDINE 20 MG TABLET PO ONE (15:11)
[2025-09-06] MEDS: LOPERAMIDE HCL 2 MG CAPSULE PO ONE (15:11)
[2025-09-06] MEDS: DICYCLOMINE HCL 10 MG CAPSULE PO ONE (15:11)
[2025-09-06 15:38] VITALS: BP 124/80; PULSE 86; RESP 16; O2SAT 99
[2025-09-06] MEDS ORDERED: FAMO20 PO (16:24)
== END 2025-09-06 17:57 | disposition home or self-care (01) ==
LOC: EMS 13:06
DX: A08.4 Viral intestinal infection, unspecified (principal); K21.9 Gastro-esophageal reflux disease without esophagitis; R11.0 Nausea; Z87.19 Personal history of other diseases of the digestive system; Z79.899 Other long term (current) drug therapy
CPT/HCPCS: 80048; 80076; 81003; 83690; 84702; 85025; 99284